=== PATIENT | male | born 1950 | race African-American/Black ===

== ENCOUNTER 2018-10-14 07:59 | Emergency (ER) | payer MEDICARE, MEDICAID ==
[~2018-10-14] VITALS: Ht 172.7 cm; Wt 85.0 kg
[2018-10-14 08:06] VITALS: BP 198/92
== END 2018-10-14 08:48 | disposition home or self-care (01) ==
LOC: ER 08:07
DX: S91.331A Puncture wound without foreign body, right foot, initial encounter (principal); I10 Essential (primary) hypertension; W26.8XXA Contact with other sharp object(s), not elsewhere classified, initial encounter; Y93.01 Activity, walking, marching and hiking; Y92.9 Unspecified place or not applicable; Z88.6 Allergy status to analgesic agent
CPT/HCPCS: 99282

== ENCOUNTER 2019-07-13 09:11 | Emergency (ER) | payer MEDICARE, MEDICAID ==
[~2019-07-13] VITALS: Ht 172.7 cm; Wt 80.0 kg
[2019-07-13] MEDS ORDERED: SODIUM CHLORIDE 0.9% 1,000 ML IV ONE (10:14)
[2019-07-13 10:23] LABS: BASOPHILS % 1.3 % (0.0-2.0); EOSINOPHILS % 1.3 % (0.0-5.0); HEMATOCRIT. 40.6 % (42.0-52.0); HEMOGLOBIN. 13.5 g/dL (14.0-18.0); MEAN CORPUSCULAR HEMOGLOBIN 31.2 pg (28.0-32.0); MEAN CORPUSCULAR VOLUME 94.1 fL (80.0-94.0); MEAN PLATELET VOLUME 7.8 fl (7.4-10.4); MONOCYTES % 12.3 % (2.0-8.0); NEUTROPHILS % 71.1 % (40.0-76.0); PLATELET 257 x1000/uL (130-400); RED BLOOD CELL COUNT 4.32 mill/uL (4.7-6.1); RED CELL DISTRIBUTION WIDTH 15.5 % (11.6-14.6)
[2019-07-13 10:24] LABS: CHLORIDE 109 mEq/L (98-107)
[2019-07-13] MEDS ORDERED: HYDRALAZINE 20MG/ML VIAL IV ONE (11:00)
[2019-07-13] MEDS ORDERED: LEVOFLOXACIN 250MG TABLET PO ONE (11:00)
[2019-07-13 11:45] VITALS: BP 184/97
== END 2019-07-13 12:10 | disposition home or self-care (01) ==
LOC: ER 09:11
DX: J18.9 Pneumonia, unspecified organism (principal); J11.00 Influenza due to unidentified influenza virus with unspecified type of pneumonia; R06.02 Shortness of breath; R53.83 Other fatigue; I10 Essential (primary) hypertension; I51.7 Cardiomegaly; Z88.6 Allergy status to analgesic agent
CPT/HCPCS: 36415; 71045; 80053; 85025; 96374; 99284; J0360; J7030